=== PATIENT | female | born 1965 | race American Indian/Alaskan Native ===

== ENCOUNTER 2021-10-24 08:52 | Outpatient (CLI) | payer BC ==
--- NOTE | 2021-10-24 11:53 | Mammography Report ---
BILATERAL DIGITAL DIAGNOSTIC MAMMOGRAM WITH CAD -- 10/24/2021 BILATERAL COMPLETE BREAST ULTRASOUND INDICATION: The patient reports intermittent pain in the lateral aspect of the left breast. TECHNIQUE: Digital bilateral mammographic imaging was performed. Complete ultrasound of all four (4) quadrants was performed. This examination was interpreted with the benefit of Computer-Aided Detecti on (CAD) analysis. COMPARISON: Bilateral mammogram, 12/03/2020, 11/03/2019 and 02/24/2019 from [facility] FINDINGS: Breast Density: There are scattered areas of fibroglandular density. MAMMOGRAPHIC FINDINGS: There is no evidence of dominant mass, suspicious calcifications or architectu ral distortion in either breast. There is no focal abnormality to account for the patient's left julien st pain ULTRASOUND FINDINGS: Complete sonographic evaluation of all 4 quadrants and retroareolar region was p erformed. Sonographic evaluation of the left breast demonstrates no suspicious solid mass or shadow ing. There is no focal abnormality to account for the patient's left breast pain. IMPRESSION: 1. No mammographic or sonographic evidence of malignancy. Clinical correlation is recommended for th e patient's left breast pain. Follow up recommendation: Routine yearly screening mammogram. BI-RADS Category 1: NEGATIVE. A "normal" or negative report should not discourage follow up or biopsy of a clinically significant f inding. A written summary of these findings will be mailed to the patient. The patient will be entered into a mammography reporting system which will generate a reminder letter for the patient's next appointmen t at the appropriate interval. According to the [employer], yearly mammograms are recommended starting at age 40 and continuing as long as a woman is in good health. Breast MRI is recommended for women with an sabino roximately 20-25% or greater lifetime risk of breast cancer, including women with a strong family his tory of breast or ovarian cancer and women who have been treated for Hodgkin's disease. Signer Name: Amanda Powell MD Signed: 10/24/2021 11:48 AM Workstation Name: [id number]
--- NOTE | 2021-10-25 08:15 | Ultrasound Report ---
ULTRASOUND BREAST LEFT COMPLETE, 10/24/2021 CLINICAL INFORMATION / INDICATION: LT BREAST PAIN. TECHNIQUE: Complete sonographic evaluation of all 4 quadrants and retroareolar region was performed. COMPARISON: Concurrent mammogram 10/24/2021 FINDINGS: Sonographic evaluation of the entire left breast was performed. No sonographic abnormality was identi fied. No solid mass, cyst, or suspicious shadowing noted. IMPRESSION: No sonographic evidence of malignancy. Clinical correlation recommended for left breast p ain Follow up recommendation: Routine yearly screening mammogram. BI-RADS Category 1: NEGATIVE. A normal or "negative" report should not preclude biopsy or follow-up of a clinically suspicious find ing. Signer Name: Catrina Carvajal MD Signed: 10/25/2021 8:10 AM Workstation Name: [id number]
== END 2021-10-24 08:53 | disposition home or self-care (01) ==
LOC: MAMMO 08:52
PROVIDERS: ATTEND Obstetrics & Gynecology
DX: N64.4 Mastodynia (principal)
CPT/HCPCS: 77066